=== PATIENT | female | born 1995 | race Caucasian/White ===

== ENCOUNTER 2016-06-02 12:45 | Emergency (ER) | payer MEDICAID ==
[2016-06-02] MEDS ORDERED: IBUPROFEN 400 MG TABLET PO STA (15:44)
[2016-06-02] MEDS ORDERED: BENZONATATE 100 MG CAPSULE PO STA (15:44)
[2016-06-02] MEDS ORDERED: guaiFENesin/CODEINE 5 ML UDC PO STA (15:44)
[2016-06-02] MEDS ORDERED: BENZONATATE 100 MG CAPSULE PO ONE (15:57)
[2016-06-02] MEDS ORDERED: IBUPROFEN 400 MG TABLET PO ONE (15:57)
[2016-06-02] MEDS ORDERED: guaiFENesin/CODEINE 5 ML UDC ONE (15:57)
== END 2016-06-02 18:06 | disposition home or self-care (01) ==
DX: J11.1 Influenza due to unidentified influenza virus with other respiratory manifestations (principal)
CPT/HCPCS: 71020; 87070; 87430; 99283; A9270

== ENCOUNTER 2016-08-24 15:34 | Emergency (ER) | payer MEDICAID ==
[2016-08-24] MEDS ORDERED: DEXAMETHASONE 10 MG/ML VIAL PO STA (17:00)
[2016-08-24] MEDS ORDERED: DEXAMETHASONE 10 MG/ML VIAL ONE (17:08)
[2016-08-24] MEDS ORDERED: CHERRY SYRUP 10 ML UDC PO ONE (17:08)
== END 2016-08-24 17:12 | disposition home or self-care (01) ==
DX: J03.90 Acute tonsillitis, unspecified (principal); Z88.0 Allergy status to penicillin
CPT/HCPCS: 87070; 87430; 99283; A9270